=== PATIENT | male | born 1985 | race Caucasian/White ===

== ENCOUNTER 2023-08-15 09:00 | Day surgery (SDC) | payer OTHER ==
[2023-08-09 15:23] LABS: BASOPHILS % (AUTO) 0.5 % (0-1); EOSINOPHILS # (AUTO) 0.1 X10'3 (0-0.9); EOSINOPHILS % (AUTO) 1.6 % (0-6); LYMPHOCYTES # (AUTO) 2.7 X10'3 (1.1-4.8); LYMPHOCYTES % (AUTO) 37.8 % (21-51); MEAN CORPUSCULAR HEMOGLOBIN 30.2 PG (27.0-31.0); MEAN CORPUSCULAR HGB CONC 34.6 g/dL (33.0-36.5); MEAN CORPUSCULAR VOLUME 87.3 FL (78-98); MEAN PLATELET VOLUME 8.1 FL (7.4-10.4); MONOCYTES # (AUTO) 0.8 X10'3 (0-0.9); MONOCYTES % (AUTO) 10.4 % (2-12); NEUTROPHILS # (AUTO) 3.6 X10'3 (1.8-7.7); NEUTROPHILS % (AUTO) 49.7 % (42-75); PRE OP HEMATOCRIT 44.3 % (42.0-52.0); PRE OP HEMOGLOBIN 15.3 g/dL (14.0-17.9); PRE OP PLATELET COUNT 254 X10'3 (140-440); PRE OP WHITE BLOOD COUNT 7.3 10'3 (4.8-10.8); RED BLOOD COUNT 5.07 X10'6 (4.70-6.10); RED CELL DISTRIBUTION WIDTH 12.6 % (11.5-14.5)
[2023-08-09 15:35] LABS: BILIRUBIN,URINE NEGATIVE (Neg); CLARITY,URINE CLEAR (Clear); COLOR,URINE YELLOW (Yellow); GLUCOSE, URINE NEGATIVE (Neg); KETONES,URINE NEGATIVE (Neg); LEUKOCYTE ESTERASE ,URINE NEGATIVE (Neg); NITRITES, URINE NEGATIVE (Neg); OCCULT BLOOD,URINE NEGATIVE (Neg); PROTEIN,URINE NEGATIVE (Neg); UROBILINOGEN,URINE 0.2 E.U/dL (0.2-1.0)
[2023-08-09 15:52] LABS: UA COLLECTION TYPE CLN CATCH MIDSTREAM
[2023-08-09 16:02] LABS: ALBUMIN 4.6 G/DL (3.4-5.0); ALBUMIN/GLOBULIN RATIO 1.4 (1.1-1.5); ALKALINE PHOSPHATASE 65 IU/L (46-116); BLOOD UREA NITROGEN 14 MG/DL (7-18); BUN/CREATININE RATIO 13.5 (10.0-20.0); CALCIUM 8.5 MG/DL (8.5-10.1); CHLORIDE 100 MMOL/L (99-107); CREATININE 1.04 MG/DL (0.60-1.10); PRE OP ANION GAP 5 (8-16); PRE OP AST 37 U/L (10-37); PRE OP BILIRUB, TOTAL 0.4 MG/DL (0.0-1.0); PRE OP GLUCOSE 91 MG/DL (70-104); PRE OP POTASSIUM 3.4 MMOL/L (3.4-5.1); PRE OP SODIUM 136 MMOL/L (135-145); TOTAL CARBON DIOXIDE 31.5 MMOL/L (24-32); TOTAL PROTEIN 7.9 G/DL (6.4-8.2); eGFR 81 ML/MIN
[2023-08-09 16:22] LABS: PRE OP ALT 99 U/L (30-65)
[~2023-08-15] VITALS: Ht 182.9 cm; Wt 96.6 kg
[2023-08-15] VITALS (11 sets, daily range): BP systolic 120–136; BP diastolic 70–89; PULSE 55–80; RESP 13–16; TEMP 96.6–98.9; O2SAT 95–100
[~2023-08-15 09:00] MED LIST: ROSU10TA28 PO; cefazolin 2gm/D5W 100mL 100 ML IV ONE; enalaprilat dihydrate 2.5mg/2ml vial IV PRN; famotidine 20mg tablet PO ONE; labetalol 20mg/4ml (5mg/ml) syringe IV PRN; meperidine/PF 25mg/ml syringe IV PRN; morphine 2 MG/ML inj. syringe IV PRN; morphine 4 MG/ML inj SYRINge IV PRN; ondansetron/PF 4mg/2ml inj IV PRN; proCHLORperazine 10 MG/2 ml inj IV PRN; ringers solution, lacted 1,000 ML IV SCH
[2023-08-15] MEDS ORDERED: BUPIVAcaine 2.5mg/ml inj 50ml vial (contains preservative) ONE (12:30)
[2023-08-15] MEDS ORDERED: sevoflurane 250ml liquid IH ONE (12:47)
[2023-08-15] MEDS ORDERED: fentaNYL /PF 50mcg/ml 5ml ampule ONE (12:53)
[2023-08-15] MEDS ORDERED: midazolam 1 mg/ML 2ml injection ONE (12:53)
[2023-08-15] MEDS ORDERED: LIDOcaine 2% (20mg/ml) 5ml vial ONE (13:05)
[2023-08-15] MEDS ORDERED: rocuronium 10mg/ml inj IV ONE (13:05)
[2023-08-15] MEDS ORDERED: propofol inj 20 ML IV ONE (13:05)
[2023-08-15] MEDS ORDERED: ondansetron/PF 4mg/2ml inj ONE (13:06)
[2023-08-15] MEDS ORDERED: dexamethasone sod phosphate 4mg/ml inj. ONE (13:06)
[2023-08-15] MEDS ORDERED: BUPIVAcaine 2.5mg/ml inj 50ml vial (contains preservative) SQ ONE (13:31)
[2023-08-15] MEDS ORDERED: glycopyrrolate 0.2mg/ml inj ONE (14:24)
[2023-08-15] MEDS ORDERED: neostigmine methylsulfate 1 MG/ML 10ml vial ONE (14:24)
[2023-08-15] MEDS ORDERED: ondansetron/PF 4mg/2ml inj IV PRN (14:45)
[2023-08-15] MEDS ORDERED: acetaminophen 1,000mg/100ml IV 100 ML IV ONE (14:45)
[2023-08-15] MEDS ORDERED: labetalol 20mg/4ml (5mg/ml) syringe IV PRN (14:45)
[2023-08-15] MEDS ORDERED: morphine 4 MG/ML inj SYRINge IV PRN (14:45)
[2023-08-15] MEDS ORDERED: ringers solution, lacted 1,000 ML IV SCH (14:45)
[2023-08-15] MEDS ORDERED: hydrALAZINE 20mg/ml inj. IV PRN (14:45)
[2023-08-15] MEDS ORDERED: proCHLORperazine 10 MG/2 ml inj IV PRN (14:45)
[2023-08-15] MEDS ORDERED: meperidine/PF 25mg/ml syringe IV PRN ×3 (14:45)
[2023-08-15] MEDS ORDERED: ketorolac trometh. 30mg/ml inj. IV ONE (14:45)
[2023-08-15] MEDS ORDERED: morphine 2 MG/ML inj. syringe IV PRN (14:45)
[2023-08-15] MEDS ORDERED: HYDROcodone/acetaminophen 10/325mg tab PO ONE (16:10)
== END 2023-08-15 16:25 | disposition home or self-care (01) ==
LOC: PAS 09:00
PROVIDERS: ATTEND Surgery
DX: K40.90 Unilateral inguinal hernia, without obstruction or gangrene, not specified as recurrent (principal); R19.09 Other intra-abdominal and pelvic swelling, mass and lump; L72.0 Epidermal cyst; D17.6 Benign lipomatous neoplasm of spermatic cord; G47.33 Obstructive sleep apnea (adult) (pediatric); E78.00 Pure hypercholesterolemia, unspecified; Z72.89 Other problems related to lifestyle; Z98.890 Other specified postprocedural states; Z79.899 Other long term (current) drug therapy; R20.8 Other disturbances of skin sensation
CPT/HCPCS: 11402; 36415; 49650; 80053; 81003; 82948; 85025; 93005; C1781; J0131; J0690; J1100; J1885; J2175; J2250; J2405; J2704; J2710; J3010; J3490; J7030; J7120; S2900; Z7506; Z7508; Z7512; A4215; A4615; A4618; C1758